=== PATIENT | male | born 1985 | race Caucasian/White ===

== ENCOUNTER 2017-12-17 16:17 | Emergency (ER) | payer MEDICAID ==
[~2017-12-17] VITALS: Ht 180.3 cm; Wt 78.2 kg
[2017-12-17 16:53] VITALS: BP 117/69
== END 2017-12-17 16:57 | disposition home or self-care (01) ==
LOC: ED 16:50
DX: K08.89 Other specified disorders of teeth and supporting structures (principal); Z88.1 Allergy status to other antibiotic agents
CPT/HCPCS: 99283

== ENCOUNTER 2017-12-19 22:34 | Emergency (ER) | payer MEDICAID ==
[~2017-12-19] VITALS: Ht 180.3 cm; Wt 77.7 kg
[2017-12-19 22:35] VITALS: BP 124/73
[2017-12-19] MEDS ORDERED: KETOROLAC 30 MG/1 ML ONE (22:55)
[2017-12-19] MEDS ORDERED: KETOROLAC 30 MG/1 ML IM ONE (23:00)
== END 2017-12-19 23:18 | disposition home or self-care (01) ==
LOC: ED 23:13
DX: K04.7 Periapical abscess without sinus (principal); K02.9 Dental caries, unspecified; E03.9 Hypothyroidism, unspecified
CPT/HCPCS: 96372; 99283; J1885

== ENCOUNTER 2018-01-04 18:01 | Inpatient (IN) | payer MEDICAID ==
[~2018-01-04] VITALS: Ht 180.3 cm; Wt 77.5 kg
[2018-01-04] MEDS ORDERED: CLINDAMYCIN PMX 900MG/50ML 50 ML IV ONE (18:30)
[2018-01-04] MEDS ORDERED: LEVO200T5 PO (18:31)
[2018-01-04] MEDS ORDERED: BUPR1FIL3 PO (18:31)
[2018-01-04] MEDS ORDERED: CLINDAMYCIN PMX 900MG/50ML 50 ML ONE (18:33)
[2018-01-04] MEDS ORDERED: KETOROLAC 30 MG/1 ML ONE (18:52)
[2018-01-04 18:53] LABS: ANION GAP 7 mmol/L (5-15); CALCIUM 8.1 mg/dL (8.5-10.1); CHLORIDE 107 mmol/L (98-107); CREATININE 2.13 mg/dL (0.7-1.3)
[2018-01-04 18:56] LABS: BASOPHILS # (AUTO) 0.05 x10^3/uL (0-0.1); BASOPHILS % (AUTO) 1 % (0-1); EOSINOPHILS # (AUTO) 0.14 x10^3/uL (0-0.4); EOSINOPHILS % (AUTO) 2 % (1-7); LYMPHOCYTES # (AUTO) 0.98 x10^3/uL (1-3.4); LYMPHOCYTES % (AUTO) 15 % (22-44); MD NO; MEAN CORPUSCULAR HEMOGLOBIN 30.3 pg (27.5-34.5); MEAN CORPUSCULAR HGB CONC 34.7 g/dL (33.2-36.2); MEAN CORPUSCULAR VOLUME 87.1 fL (81-97); MEAN PLATELET VOLUME 8.6 fL (7.4-10.4); MONOCYTES # (AUTO) 0.69 x10^3/uL (0.2-0.8); MONOCYTES % (AUTO) 11 % (2-9); NEUTROPHILS # (AUTO) 4.53 x10^3/uL (1.8-6.8); NEUTROPHILS % (AUTO) 71 % (42-75); PLATELET COUNT 129 x10^3/uL (130-400); RED BLOOD COUNT 3.98 x10^6/uL (4.38-5.82); RED CELL DISTRIBUTION WIDTH 12.8 % (9.4-14.8)
[2018-01-04] MEDS ORDERED: KETOROLAC 60 MG/2 ML IVPush ONE (19:00)
[2018-01-04] MEDS ORDERED: SODIUM CHLORIDE 0.9% 1,000ML IVBOLUS ONE (19:30)
[2018-01-04] MEDS ORDERED: METOCLOPRAMIDE 5 MG/ML, 2ML IVPush ONE (20:00)
[2018-01-04] MEDS ORDERED: METOCLOPRAMIDE 5 MG/ML, 2ML ONE (20:17)
[2018-01-04] MEDS ORDERED: CLINDAMYCIN PMX 600MG/50ML 50 ML IV SCH (21:00)
[2018-01-04] MEDS ORDERED: KETOROLAC 30 MG/1 ML IVPush SCH (21:00)
[2018-01-04 21:11] LABS: ALANINE AMINOTRANSFERASE 15 U/L (12-78); ALBUMIN 3.3 g/dL (3.4-5.0)
[2018-01-04 21:13] LABS: BILIRUBIN, DIRECT < 0.1 mg/dL (0.1-0.2); BILIRUBIN,INDIRECT 0.4 mg/dL (0.0-2.0); BILIRUBIN,TOTAL 0.5 mg/dL (0.2-1.0)
[2018-01-04 21:20] LABS: ALKALINE PHOSPHATASE 66 U/L (45-117); TOTAL PROTEIN 6.6 g/dL (6.4-8.2)
[2018-01-04] MEDS ORDERED: BISACODYL 10 MG SUPP PR PRN (21:30)
[2018-01-04] MEDS ORDERED: POLYETHYLENE GLYCOL 17 GM PACKET PO PRN (21:30)
[2018-01-04] MEDS ORDERED: ONDANSETRON ODT 4 MG PO PRN (21:30)
[2018-01-04] MEDS: SODIUM CHLORIDE 0.9% 1,000 ML IV SCH (21:58)
[2018-01-04] MEDS: AMPICILLIN/SULBACTAM 3 GM in SODIUM CHLORIDE 0.9% 100 ML IV SCH (21:58)
[2018-01-04 22:21] VITALS: BP 119/75
[2018-01-04] MEDS: ACETAMINOPHEN 325 MG TABLET PO PRN (23:27)
[2018-01-05 03:17] VITALS: BP 112/73
[2018-01-05] MEDS: AMPICILLIN/SULBACTAM 3 GM in SODIUM CHLORIDE 0.9% 100 ML IV SCH ×4 (03:30→21:29)
[2018-01-05] MEDS: SODIUM CHLORIDE 0.9% 1,000 ML IV SCH ×2 (03:30→14:30)
[2018-01-05] MEDS: ACETAMINOPHEN 325 MG TABLET PO PRN ×2 (03:31→21:30)
[2018-01-05 05:20] LABS: BASOPHILS # (AUTO) 0.02 x10^3/uL (0-0.1); BASOPHILS % (AUTO) 0 % (0-1); EOSINOPHILS # (AUTO) 0.14 x10^3/uL (0-0.4); EOSINOPHILS % (AUTO) 2 % (1-7); LYMPHOCYTES # (AUTO) 1.03 x10^3/uL (1-3.4); LYMPHOCYTES % (AUTO) 16 % (22-44); MD NO; MEAN CORPUSCULAR HEMOGLOBIN 29.9 pg (27.5-34.5); MEAN CORPUSCULAR HGB CONC 34.5 g/dL (33.2-36.2); MEAN CORPUSCULAR VOLUME 86.8 fL (81-97); MONOCYTES # (AUTO) 0.77 x10^3/uL (0.2-0.8); MONOCYTES % (AUTO) 12 % (2-9); NEUTROPHILS # (AUTO) 4.32 x10^3/uL (1.8-6.8); NEUTROPHILS % (AUTO) 69 % (42-75); PLATELET COUNT 120 x10^3/uL (130-400); RED BLOOD COUNT 3.92 x10^6/uL (4.38-5.82); RED CELL DISTRIBUTION WIDTH 12.9 % (9.4-14.8)
[2018-01-05 05:26] LABS: ANION GAP 8 mmol/L (5-15); CHLORIDE 109 mmol/L (98-107)
[2018-01-05 05:29] LABS: ALANINE AMINOTRANSFERASE 27 U/L (12-78); ALKALINE PHOSPHATASE 69 U/L (45-117); BILIRUBIN,TOTAL 0.5 mg/dL (0.2-1.0); CREATININE 1.51 mg/dL (0.7-1.3); TOTAL PROTEIN 6.4 g/dL (6.4-8.2)
[2018-01-05] MEDS ORDERED: OMNIPAQUE 350 MG/ML, 100ML BOTTLE ONE (06:09)
[2018-01-05 07:55] VITALS: BP 127/77
[2018-01-05] MEDS ORDERED: LEVOTHYROXINE 100 MCG TABLET ONE (09:52)
[2018-01-05] MEDS: SENNA/DOCUSATE TABLET PO SCH (09:55)
[2018-01-05] MEDS: LEVOTHYROXINE 200 MCG TABLET PO SCH (09:56)
[2018-01-05] MEDS: BUPRENORPHINE HCL/NALOXONE 8-2MG FILM SL SCH (09:57)
[2018-01-05 12:45] VITALS: BP 121/73
[2018-01-05] MEDS ORDERED: BUPIVACAINE/PF 0.25% ONE (18:00)
[2018-01-05] MEDS ORDERED: EPINEPHRINE 1 MG/ML, 1ML ONE (18:00)
[2018-01-05] MEDS ORDERED: ONDANSETRON 2MG/ML, 2ML ONE ×2 (18:14→19:02)
[2018-01-05] MEDS ORDERED: PROPOFOL 10 MG/ML, 20ML ONE (18:14)
[2018-01-05] MEDS ORDERED: DEXAMETHASONE 4 MG/ML, 5ML ONE (18:14)
[2018-01-05] MEDS ORDERED: SUCCINYLCHOLINE 20 MG/ML, 10ML ONE (18:14)
[2018-01-05] MEDS ORDERED: MIDAZOLAM 1 MG/ML, 2ML ONE (18:15)
[2018-01-05] MEDS ORDERED: FENTANYL PF 100 MCG/2ML ONE ×3 (18:19→19:17)
[2018-01-05] MEDS ORDERED: LABETALOL 5MG/ML, 20ML IV PRN (19:00)
[2018-01-05] MEDS ORDERED: hydrALAzine 20 MG/ML, 1ML IV PRN (19:00)
[2018-01-05] MEDS ORDERED: ONDANSETRON 2MG/ML, 2ML IVPush PRN (19:00)
[2018-01-05] MEDS ORDERED: ACETAMINOPHEN 325 MG TABLET PO PRN (19:00)
[2018-01-05] MEDS: FENTANYL PF 100 MCG/2ML IV PRN ×4 (19:10→19:35)
[2018-01-05 20:27] VITALS: BP 124/65
[2018-01-05] MEDS: CHLORHEXIDINE 15 ML BOTTLE MM SCH (21:22)
[2018-01-05] MEDS: OXYcodone IR 5MG TABLET PO PRN (22:19)
[2018-01-05 23:33] VITALS: BP 111/58
[2018-01-06] MEDS: ACETAMINOPHEN 325 MG TABLET PO PRN ×3 (02:50→13:24)
[2018-01-06] MEDS: AMPICILLIN/SULBACTAM 3 GM in SODIUM CHLORIDE 0.9% 100 ML IV SCH ×2 (02:52→09:54)
[2018-01-06] MEDS: SODIUM CHLORIDE 0.9% 1,000 ML IV SCH ×2 (02:52→11:16)
[2018-01-06 04:10] VITALS: BP 114/55
[2018-01-06] MEDS ORDERED: LEVOTHYROXINE 100 MCG TABLET ONE (04:24)
[2018-01-06] MEDS: LEVOTHYROXINE 200 MCG TABLET PO SCH (04:27)
[2018-01-06] MEDS: OXYcodone IR 5MG TABLET PO PRN ×2 (04:27→11:01)
[2018-01-06 04:51] LABS: ANION GAP 8 mmol/L (5-15); CHLORIDE 108 mmol/L (98-107)
[2018-01-06 04:53] VITALS: BP 114/55
[2018-01-06 08:00] VITALS: BP 112/64
[2018-01-06] MEDS: BUPRENORPHINE HCL/NALOXONE 8-2MG FILM SL SCH (09:00)
[2018-01-06] MEDS: SENNA/DOCUSATE TABLET PO SCH (09:48)
[2018-01-06] MEDS: CHLORHEXIDINE 15 ML BOTTLE MM SCH (09:52)
[2018-01-06] MEDS ORDERED: AMOX1TAB12 PO (11:11)
[2018-01-06 11:59] VITALS: BP 124/61
== END 2018-01-06 13:30 | disposition home or self-care (01) | DRG 579 ==
LOC: ED 18:25 → EDIP 20:43 → 4NOR 21:44
PROVIDERS: ADMIT Hospitalist; ATTEND Family Medicine
PROC: 0NUV0KZ Supplement Left Mandible with Nonautologous Tissue Substitute, Open Approach (ICD-10-PCS; 2018-01-05)
PROC: 0CDXXZ1 Extraction of Lower Tooth, Multiple, External Approach (ICD-10-PCS; 2018-01-05)
PROC: 0W930ZZ Drainage of Oral Cavity and Throat, Open Approach (ICD-10-PCS; principal; 2018-01-05 21:00)
DX: L03.211 Cellulitis of face (principal); N17.0 Acute kidney failure with tubular necrosis; K12.2 Cellulitis and abscess of mouth; H05.019 Cellulitis of unspecified orbit; L03.213 Periorbital cellulitis; K02.9 Dental caries, unspecified; K04.7 Periapical abscess without sinus; K01.1 Impacted teeth; D64.9 Anemia, unspecified; D69.6 Thrombocytopenia, unspecified; E89.0 Postprocedural hypothyroidism; F11.10 Opioid abuse, uncomplicated; Z85.850 Personal history of malignant neoplasm of thyroid
CPT/HCPCS: 36415; 41800; 70100; 70481; 70486; 80048; 80053; 80076; 85025; 96361; 96365; 96375; J0171; J0295; J1100; J1885; J2250; J2405; J2704; J3010; J3490; Q9967; J0330; J2765; J7030